=== PATIENT | male | born 1985 | race Caucasian/White ===

== ENCOUNTER 2017-02-26 13:56 | Emergency (ER) | payer BC ==
[2017-02-26 14:10] VITALS: BP 141/81
[2017-02-26] MEDS ORDERED: Morphine INJ* 4 MG/ML 1 ML SYRINGE IM ONE (14:23)
[2017-02-26] MEDS ORDERED: Tetan/Diph/Pertus SYR(Tdap)* 0.5 ML SYR(BOOSTRIX) use SYR IM ONE (14:23)
[2017-02-26] MEDS ORDERED: ceFAZolin 500 MG VIAL(*) 500 MG VIAL IM ONE (14:23)
[2017-02-26] MEDS ORDERED: Ondansetron ODT TAB* 4 MG PO ONE (14:25)
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
== END 2017-02-26 15:32 | disposition left against medical advice (07) ==
LOC: ED 13:56
DX: T23.202A Burn of second degree of left hand, unspecified site, initial encounter (principal); X08.8XXA Exposure to other specified smoke, fire and flames, initial encounter; Y93.9 Activity, unspecified; Y92.89 Other specified places as the place of occurrence of the external cause; F17.210 Nicotine dependence, cigarettes, uncomplicated; T23.301A Burn of third degree of right hand, unspecified site, initial encounter
CPT/HCPCS: 90471; 90715; 96372; 99282; A9270-GY; J0690; J2270